=== PATIENT | male | born 1970 | race Caucasian/White ===

== ENCOUNTER 2019-01-01 15:21 | Emergency (ER) | payer BC ==
[~2019-01-01] VITALS: Ht 167.6 cm; Wt 89.0 kg
[2019-01-01] MEDS ORDERED: DEXAMETHASONE 10 MG/ML VIAL IM ONE (18:15)
[2019-01-01] MEDS ORDERED: KETOROLAC 60MG/2ML VIAL IM ONE (18:15)
[2019-01-01 18:25] VITALS: BP 119/75
== END 2019-01-01 18:31 | disposition home or self-care (01) ==
LOC: ER 15:21
DX: M54.32 Sciatica, left side (principal); G58.9 Mononeuropathy, unspecified; F17.200 Nicotine dependence, unspecified, uncomplicated
CPT/HCPCS: 96372; 99283; J1100; J1885

== ENCOUNTER 2024-10-16 18:35 | Emergency (ER) | payer OTHER, BC ==
[~2024-10-16] VITALS: Ht 167.6 cm; Wt 81.6 kg
[2024-10-16 18:45] VITALS: O2SAT 100
[2024-10-16] MEDS ORDERED: AMOX1TAB16 MT (20:20)
[2024-10-16] MEDS: AMOXICILLIN/POTASSIUM CLAVULANATE 875/125MG TAB PO ONE (20:34)
[2024-10-16 20:49] VITALS: BP 123/68; PULSE 80; RESP 17; TEMP 36.9; O2SAT 100
[2024-10-16 20:59] LABS: CHLORIDE 101 mEq/L (98-107); POTASSIUM 3.5 mEq/L (3.5-5.1); SODIUM 137 mEq/L (136-145)
[2024-10-16 21:00] LABS: BASOPHILS % 1.4 % (0.0-2.0); CALCIUM 8.6 mg/dL (8.7-10.4); CARBON DIOXIDE 30 mEq/L (21-32); EOSINOPHILS % 0.1 % (0.0-5.0); HEMATOCRIT. 41.4 % (42.0-52.0); HEMOGLOBIN. 14.1 g/dL (14.0-18.0); LYMPHOCYTES % 22.5 % (20.0-50.0); MEAN CORPUSCULAR HEMOGLOBIN 29.8 pg (28.0-32.0); MEAN CORPUSCULAR VOLUME 87.6 fL (80.0-94.0); MEAN PLATELET VOLUME 7.8 fl (7.4-10.4); MONOCYTES % 10.6 % (2.0-8.0); NEUTROPHILS % 65.4 % (40.0-76.0); PLATELET 121 x1000/uL (130-400); RED BLOOD CELL COUNT 4.72 mill/uL (4.7-6.1); RED CELL DISTRIBUTION WIDTH 13.5 % (11.6-14.6); WHITE BLOOD COUNT 4.6 x1000/uL (4.5-11.0)
[2024-10-16 21:05] LABS: CREATININE 0.8 mg/dL (0.6-1.3); GLUCOSE 103 mg/dL (70-105); UREA NITROGEN BLOOD 10 mg/dL (9-23)
[2024-10-16 21:07] LABS: ALANINE AMINOTRANSFERASE 30 IU/L (10-49); ALBUMIN 3.9 g/dL (3.2-4.8); ASPARTATE AMINOTRANSFERASE 38 IU/L (<34); BILIRUBIN TOTAL 0.2 mg/dL (0.1-1.0); PROTEIN TOTAL 6.9 g/dL (6.0-8.3)
== END 2024-10-16 22:18 | disposition home or self-care (01) ==
LOC: ER 18:35
DX: L03.119 Cellulitis of unspecified part of limb (principal)
CPT/HCPCS: 36415; 80053; 85025; 99283